=== PATIENT | male | born 1980 | race Caucasian/White ===

== ENCOUNTER 2022-08-30 16:38 | Outpatient (CLI) | payer OTHER ==
[~2022-08-30 16:38] MED LIST: GADOBUTROL 7.5 MMOL/7.5 ML VIAL ONE
--- NOTE | 2022-08-31 16:06 | MRI Report ---
PROCEDURE: CERVICAL SPINE WO INDICATIONS: CERVICAL SPONDYLOSIS TECHNIQUE: Noncontrast sagittal T1 spin echo and T2 fast spin echo, sagittal STIR, foraminal oblique sagittal T2 fast spin echo, and axial gradient echo or T2 fast spin echo through the cervical spine. COMPARISON: None. FINDINGS: Image quality: Excellent. Alignment and Curvature: Trace degenerative retrolisthesis of C5 on C6 and of C6 on C7. Bone Marrow: Marrow demonstrates normal overall signal. Spinal Cord: Visualized spinal cord has normal size and signal. No cerebellar tonsillar herniation. Paraspinous Soft Tissues: No paravertebral masses. Prevertebral soft tissues are normal in thicknes s. C2-C3: No canal stenosis or foraminal stenosis. Left facet hypertrophy. C3-C4: Posterior disc plus osteophyte abuts the ventral cord. AP diameter of the canal is 13.8 mm. Bilateral uncovertebral joint hypertrophy. Mild right and mild to moderate left foraminal narrowing. C4-C5: AP diameter of the canal is 14.4 mm. Foramina are widely patent. Mild left facet hypertrophy. C5-C6: Posterior disc plus osteophyte. AP diameter of the canal is 13.2 mm. Moderate left foraminal narrowing. Mild left facet hypertrophy. C6-C7: Posterior disc bulge. AP diameter of the canal is 12.4 mm. Bilateral uncovertebral joint hype rtrophy. Moderate bilateral foraminal narrowing with mild flattening deformity on the exiting bilater al C7 nerve roots. C7-T1: No canal stenosis or foraminal stenosis. IMPRESSION: 1. Mild cervical spondylitic change with mild multilevel facet hypertrophy. 2. No canal stenosis. 3. Multilevel foraminal narrowing as described above, including moderate left foraminal narrowing at C5-C6 and moderate bilateral foraminal narrowing at C6-C7. Reviewed by: Kd Arevalo MD on 08/31/2022 4:04 PM PST Approved by: Kd Arevalo MD on 08/31/2022 4:04 PM PST Station ID: [id number]
== END 2022-08-30 16:39 | disposition home or self-care (01) ==
LOC: DI 16:38
PROVIDERS: ATTEND Internal Medicine
DX: M47.812 Spondylosis without myelopathy or radiculopathy, cervical region (principal); M50.323 Other cervical disc degeneration at C6-C7 level; M48.02 Spinal stenosis, cervical region; M25.78 Osteophyte, vertebrae
CPT/HCPCS: 72141; A9585